=== PATIENT | male | born 1980 | race Caucasian/White ===

== ENCOUNTER 2022-07-13 16:55 | Emergency (ER) | payer OTHER, SELFPAY ==
[2022-07-13 17:02] VITALS: BP 134/87; PULSE 85; RESP 16; TEMP 37; O2SAT 98
[2022-07-13 17:07] VITALS: BP 134/87; PULSE 85; RESP 16; TEMP 37; O2SAT 98
--- NOTE | 2022-07-13 17:17 | ED.URI ---
HPI - URI/Sore Throat General Chief Complaint: Upper Respiratory Infection Stated Complaint: Sinus/Ears Irritation/Throat Time Seen by Provider: 07/13/22 17:17 Source: patient Mode of arrival: ambulatory Limitations: no limitations History of Present Illness HPI Narrative: 42-year-old male presents with complaint of sinus congestion, pressure, pain, headaches, fatigue and low-grade fever for 1 week. Reports mild occasional dry cough. Some postnasal drainage. Not taking any nozo-[id number] medications to treat his symptoms. States he thought he had a virus and it would get better but it is not. Did not do any home COVID testing. All systems reviewed and negative except as noted above. Related Data Home Medications Medication Instructions Recorded Confirmed rosuvastatin 10 mg tablet (Crestor) 10 mg PO DAILY 03/23/20 03/25/20 fenofibrate 160 mg tablet mg 07/13/22 07/13/22 Allergies Allergy/AdvReac Type Severity Reaction Status Date / Time No Known Allergies Allergy Verified 07/13/22 17:06 Review of Systems Review of Systems: CONSTITUTIONAL: Denies fever, chills, or sweats. reports fatigue. EYES: Denies visual changes, redness, or discharge. ENT: Reports rhinorrhea, congestion, sinus pressure. Denies sore throat, or otalgia. CARDIOVASCULAR: Denies chest pain, palpitations, or edema. RESPIRATORY: Denies cough or dyspnea. GASTROINTESTINAL: Denies abdominal pain, nausea, vomiting, or diarrhea. GENITOURINARY: Denies dysuria or hematuria. SKIN: Denies rash or itching. MUSCULOSKELETAL: Denies back pain, joint pain, or myalgia. NEUROLOGIC: Denies headache, numbness, or weakness. PSYCHIATRIC: Denies anxiety or depression. All other systems reviewed are negative, except as documented in HPI. 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 There is no relevant family history pertinent to the presenting complaint. Exam Narrative: GENERAL: This is a well-nourished, well-developed patient, in no apparent distress. HEAD: normocephalic, atraumatic. EYES: PERRL. Sclera clear/white. Vision is grossly intact. EARS: External ears normal, auditory canals clear and without drainage, TMs normal without perforation. Hearing grossly intact. NOSE: External nose normal with Prelim nasal drainage, moderate congestion with tenderness to bilateral maxillary sinus. THROAT: Mucous membranes moist, Postnasal drainage with mild erythema. NECK: Neck supple, non-tender without lymphadenopathy, masses or thyromegaly. CARDIOVASCULAR: Regular rate and rhythm without murmurs, gallops, or rubs. RESPIRATORY: Clear to auscultation. Breath sounds equal bilaterally. No wheezes, rales, or rhonchi. SKIN: warm, Dry, intact with no suspicious lesions or rash, good texture and turgor. NEURO: awake, alert, and oriented to person, place and time. Course Course Level of Care: Express Care Visit Vital Signs Vital signs: Vital Signs Temperature 37.0 C 07/13/22 17:02 Pulse Rate 85 07/13/22 17:02 Respiratory Rate 16 07/13/22 17:02 Blood Pressure 134/87 07/13/22 17:02 Pulse Oximetry 98 07/13/22 17:02 Oxygen Delivery Room Air 07/13/22 17:02 Temperature 37.0 C
== END 2022-07-13 17:33 | disposition home or self-care (01) ==
PROVIDERS: Emergency Provider Nurse Practitioner Family; PCP Emergency Medicine
DX: J01.90 Acute sinusitis, unspecified (principal); E78.00 Pure hypercholesterolemia, unspecified
CPT/HCPCS: 99213; G0463

== ENCOUNTER 2023-10-03 08:52 | Outpatient (CLI) | payer OTHER, SELFPAY ==
[2023-10-19 10:41] VITALS: BMI 29.5
--- NOTE | 2023-10-19 10:41 | WPDSLEEPSTUD ---
Sleep Study Date of Study: 10/03/23 Ordering Provider: Martin Garzon MD Interpreting Physician: Awa Solorio DO Sleep Study Type: CPAP Titration Height: 1.75 m Weight: 90.718 kg Body Mass Index: 29.5 Neck Circumference (inches): 17 Mitchells: 9 Reason for Sleep Study SNAP home sleep test on 12/08/2021 showed AHI (4%) of 5.7 and AHI (3%) of 19.8 with desaturation down to 88%. He is currently on CPAP 8.6 cm H2O with EPR of 2. Compliance data shows residual AHI <5. Average usage of 5 hours 25 min. Sleep History Sleep questionnaire was unavailable. 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 Medications Home Medications Medication Instructions Recorded Confirmed Type rosuvastatin 10 mg tablet (Crestor) 10 mg PO DAILY 03/23/20 03/25/20 History amoxicillin 875 mg tablet 875 mg PO Q12H 7 days #14 tabs 07/13/22 Rx fenofibrate 160 mg tablet mg 07/13/22 07/13/22 History fluticasone propionate 50 1 spray intranasal BID #16 grams 07/13/22 Rx mcg/actuation nasal spray,suspension (Children's Flonase Allergy Relief) loratadine 5 mg-pseudoephedrine ER 1 tablet PO Q12H PRN nasal 07/13/22 Rx 120 mg tablet,extended congestion #20 tabs release,12hr (Claritin-D 12 Hour) Sleep Procedure A full night polysomnogram using the [employer] multi-channel system recorded the standard physiologic parameters including EEG, EOG, submentalis EMG, anterior tibialis EMG, EKG, body position, nasal and oral airflow using PAP device flow signal.? Respiratory parameters of chest and abdominal movements were recorded with Respiratory Inductance Plethysmography belts. Oxygen saturation was recorded by pulse oximetry. Video monitoring was also performed. Sleep stages, periodic limb movements, and EEG arousals were scored in 30 second epochs according to the criteria of the AASM Scoring Manual. The Apnea-Hypopnea Index was calculated using [facility] guidelines for definition of hypopnea with 4% O2 desaturations while scoring respiratory events. Sleep Architecture The total recording time was 478.9 minutes.? The total sleep time was 422.0 minutes. Sleep latency was 15.8 minutes. REM latency was 58.5 minutes. Sleep efficiency was 88.1%. The patient had 22 awakenings for an awakening index of 3.1. Wake after Sleep Onset time was 41.0 minutes. The patient spent 12.5 minutes, 3.0% of total sleep time in Stage N1. The patient spent 292.0 minutes, 69.2% in Stage N2. The patient spent 39.5 minutes, 9.4% in Stage N3. The patient spent 78.0 minutes, 18.5% in Stage REM. Respiratory Analysis The patient did not have any respiratory events resulting in an overall Apnea Hypopnea Index of 0 events per hour. The REM Apnea Hypopnea Index was 0. The NREM Apnea Hypopnea Index was 0. The patient had a Central Apnea Hypopnea Index of 0. There was no evidence of Jesus-Griffin Respirations. The patient was started on CPAP 5 cm H2O and titrated to CPAP 10 cm H2O due to hypopneas and snoring. The patient was able to fall asleep during CPAP 5 cm H2O. The patient was able to achieve REM sleep starting on CPAP 7 cm H2O. The patient was able to achieve a residual AHI less than 5 with both NREM and REM sleep in the supine position on 7 cm, 9 cm and 10 cm. On CPAP 7 cm H2O, the patient spent 36 minutes
== END 2023-10-04 07:27 | disposition home or self-care (01) ==
LOC: ANHCSM 08:52
PROVIDERS: PCP Emergency Medicine; Visit Provider Emergency Medicine
DX: G47.33 Obstructive sleep apnea (adult) (pediatric) (principal)
CPT/HCPCS: 95811

== ENCOUNTER 2024-10-10 14:45 | Outpatient (CLI) | payer OTHER, SELFPAY ==
--- NOTE | ~2024-10-10 | XR_ITS ---
EXAMINATION: XR chest 2V 10/10/2024 15:08 INDICATION: Pneumonia and cough for 2 weeks PROCEDURE: 2 view chest COMPARISON: No prior studies for comparison. FINDINGS: The lungs are clear. The cardiomediastinal silhouette is within normal limits. There are no pleural effusions. There is no pneumothorax suspected. IMPRESSION: 1: NO ACUTE CARDIOPULMONARY DISEASE. Reviewed, dictated and finalized at location B.
== END 2024-10-10 14:46 | disposition home or self-care (01) ==
PROVIDERS: PCP Emergency Medicine; Visit Provider Emergency Medicine
DX: J18.9 Pneumonia, unspecified organism (principal)
CPT/HCPCS: 71046